=== PATIENT | female | born 1955 | race Caucasian/White ===

== ENCOUNTER 2019-11-01 17:46 | Inpatient (IN) | payer MEDICARE, BC ==
[~2019-11-01] VITALS: Ht 172.7 cm; Wt 46.7 kg
[2019-11-01 18:36] LABS: Basophils # (auto) 0 10 ^3/uL (0-0.2); Basophils % (auto) 0.1 % (0.0-2.0); Eosinophils # (auto) 0.1 10 ^3/uL (0-0.8); Eosinophils % (auto) 2.2 % (0.0-7.0); Hematocrit 37.6 % (36.0-46.0); Hemoglobin 12.5 g/dL (12.2-16.2); Lymphocytes # (auto) 1.6 10 ^3/uL (0.4-5.4); Lymphocytes % (auto) 43.7 % (10.0-50.0); Mean Corpuscular Hgb Conc. 33.3 g/dL (32.0-36.0); Monocytes # (auto) 0.3 10 ^3/uL (0-1.3); Monocytes % (auto) 9.7 % (0.0-12.0); Neutrophils # (auto) 1.6 10 ^3/uL (1.6-8.6); Neutrophils % (auto) 44.3 % (37.0-80.0); Nucleated Red Blood Cells % 0.1 %; Platelet Count (auto) 158 10^3/uL (140-450); Red Blood Cells 4.04 10^6/uL (4.0-5.20); Red Cell Distribution Width 13.8 % (11.8-14.3); White Blood Cell 3.6 10^3/uL (4.4-10.8)
[2019-11-01 18:41] LABS: Albumin 3.4 g/dL (3.4-5.0); Anion Gap 8 (5-15); Blood Urea Nitrogen 12 mg/dL (7-18); Calcium 8.4 mg/dL (8.5-10.1); Carbon Dioxide 25 mmol/L (21-32); Chloride 103 mmol/L (98-107); Glucose 147 mg/dL (74-106); Potassium 3.3 mmol/L (3.5-5.1); Sodium 136 mmol/L (136-145)
[2019-11-01] MEDS ORDERED: SODIUM CHLORIDE 0.9% 500 ML IV ONE (18:45)
[2019-11-01 18:48] LABS: Alanine Aminotransferase 18 U/L (13-56); Alkaline Phosphatase 62 U/L (45-117); Aspartate Aminotransferase 11 U/L (15-37); BUN/Creatinine Ratio 21.4; Bilirubin, Total 1.2 mg/dL (0.2-1.0); GFR African American 140 mL/min; GFR Non-African American 115 mL/min
[2019-11-01] MEDS ORDERED: IOHEXOL 350 MG/ML 100ML IJ ONE (21:10)
[2019-11-01 23:10] LABS: Urine Bacteria NONE SEEN /hpf (None Seen); Urine Blood Negative /uL (Negative); Urine Specific Gravity 1.011 (1.001-1.035); Urine WBC 1 /hpf (0 - 5)
[2019-11-01] MEDS ORDERED: SODIUM CHLORIDE 0.9% 1,000 ML IV SCH (23:50)
[2019-11-02] MEDS ORDERED: DEXTROSE (50%) 50ML SYRG IV PRN
[2019-11-02] MEDS ORDERED: ONDANSETRON HCL 4 MG/2 ML VIAL IV PRN
[2019-11-02] MEDS ORDERED: HYDROcodone-ACET 5/325MG TAB PO PRN
[2019-11-02] MEDS ORDERED: ACETAMINOPHEN 325 MG TAB PO PRN
[2019-11-02] MEDS ORDERED: DOCUSATE SOD 100 MG CAP PO PRN
[2019-11-02] MEDS: ACCU-CHEK COMFORT CURVE STRIP VI SCH ×3 (01:01→08:23)
[2019-11-02] MEDS: InsuLIN REG 1unit/0.01ml Soln (100units/ml) SC SCH ×3 (01:02→08:00)
--- NOTE | 2019-11-02 02:05 | NUR ---
Telemetry admit from [facility] admitted to Telemetry unit after SBAR received. Patient oriented to Natalie Tomas, primary RN, unit, room, bed, and unit policies regarding patient care and visiting hours. Patient now on continuous telemetry monitoring, tele box # [id number] and telemetry reading on arrival to unit is sinus rhythm . Patient placed on bedside oxygen, weighed by bedscale and encouraged to call if they need something. All questions and concerns addressed, patient verbalized understanding. Note:
[2019-11-02] MEDS ORDERED: POTASSIUM EFFERVESENT TAB 25 MEQ PO ONE (02:15)
[2019-11-02] MEDS ORDERED: POTASSIUM CHL 20 Meq TABLET PO ONE ×3 (02:30→12:00)
[2019-11-02 04:35] VITALS: BP 97/56
--- NOTE | 2019-11-02 05:17 | NUR ---
Medication Reconciliation Per patient, her doctor instructed her to stop taking her chemo medications until he could adjust them. No current medications reported.
--- NOTE | 2019-11-02 05:18 | NUR ---
Advanced Directive Patient states she has an advanced directive and one of her family members can bring a copy to the hospital.
[2019-11-02 08:00] VITALS: BP 97/59
[2019-11-02 09:00] VITALS: BP 97/59
[2019-11-02 10:14] LABS: Basophils # (auto) 0 10 ^3/uL (0-0.2); Basophils % (auto) 0.1 % (0.0-2.0); Eosinophils # (auto) 0.1 10 ^3/uL (0-0.8); Eosinophils % (auto) 3.1 % (0.0-7.0); Hematocrit 31.5 % (36.0-46.0); Hemoglobin 10.8 g/dL (12.2-16.2); Lymphocytes # (auto) 0.6 10 ^3/uL (0.4-5.4); Lymphocytes % (auto) 19.4 % (10.0-50.0); Mean Corpuscular Hgb Conc. 34.4 g/dL (32.0-36.0); Mean Corpuscular Volume 93.1 fL (80.0-100.0); Monocytes # (auto) 0.4 10 ^3/uL (0-1.3); Monocytes % (auto) 13.9 % (0.0-12.0); Neutrophils # (auto) 1.9 10 ^3/uL (1.6-8.6); Neutrophils % (auto) 63.5 % (37.0-80.0); Platelet Count (auto) 123 10^3/uL (140-450); Red Blood Cells 3.38 10^6/uL (4.0-5.20); Red Cell Distribution Width 13.6 % (11.8-14.3)
[2019-11-02 10:17] LABS: Calcium 7.9 mg/dL (8.5-10.1); Potassium 3.8 mmol/L (3.5-5.1)
[2019-11-02 10:19] LABS: BUN/Creatinine Ratio 24.5
--- NOTE | 2019-11-02 10:30 | NUR ---
PATIENT'S FAMILY BROUGHT IN PATIENT'S ADVANCE DIRECTIVE AND WAS PLACED IN PATIENT'S CHART.
[2019-11-02] MEDS ORDERED: SODIUM CHLORIDE 0.9% 1,000 ML IV SCH (12:00)
[2019-11-02] MEDS ORDERED: LOPERAMIDE HCL 2 MG CAP PO ONE (12:00)
--- NOTE | 2019-11-02 12:01 | NUR ---
MD AT BEDSIDE DR. Linda BASILIO WAS IN TO SEE PATIENT AND MD LEFT NEW ORDERS.
[2019-11-02 13:00] VITALS: BP 100/55
[2019-11-02 16:43] VITALS: BP 110/67
== END 2019-11-02 17:05 | disposition home or self-care (01) | DRG 641 ==
LOC: ER 17:46 → TELE 17:47 → TELE-CENTR 11-02 01:48
PROVIDERS: ADMIT Hospitalist; ATTEND Hospitalist
DX: E86.0 Dehydration (principal); K52.0 Gastroenteritis and colitis due to radiation; T45.1X5A Adverse effect of antineoplastic and immunosuppressive drugs, initial encounter; Z90.11 Acquired absence of right breast and nipple; E87.6 Hypokalemia; Y84.2 Radiological procedure and radiotherapy as the cause of abnormal reaction of the patient, or of later complication, without mention of misadventure at the time of the procedure; R73.9 Hyperglycemia, unspecified; Z88.2 Allergy status to sulfonamides; Z85.3 Personal history of malignant neoplasm of breast
CPT/HCPCS: 36415; 70450; 71045; 71275; 80048; 80053; 81001; 82962; 83036; 83735; 83880; 84484; 85025; 85379; 93005; G0378